=== PATIENT | male | born 2000 | race Caucasian/White ===

== ENCOUNTER 2018-01-12 05:48 | Emergency (ER) | payer OTHER ==
[~2018-01-12] VITALS: Ht 188 cm; Wt 90.7 kg
[2018-01-12 05:55] VITALS: BP_SYST 144
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
--- NOTE | 2018-01-12 05:55 | NUR ---
Placed in room 08 . To gown for exam. Side rails up. Report given to TONNY Roque.
--- NOTE | 2018-01-12 06:00 | NUR ---
ER at bedside examining patient.
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
[2018-01-12] MEDS ORDERED: BACITRACIN 1 GM OINT TP ONE (06:15)
[2018-01-12] MEDS ORDERED: LIDOCAINE/EPI 1% 1:100000 20 ML VIAL IJ ONE (06:15)
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
[2018-01-12 06:47] VITALS: BP_SYST 144
--- NOTE | 2018-01-12 06:47 | NUR ---
Patient given written and verbal discharge instructions and verbalizes understanding. ER MD discussed with patient the results and treatment provided. Patient in stable condition. ID arm band removed. Patient educated on pain management and to follow up with PMD. Pain Scale 0/10. Opportunity for questions provided and answered. Medication side effect fact sheet provided.
== END 2018-01-12 06:47 | disposition home or self-care (01) ==
LOC: SED 05:48
DX: S01.111A Laceration without foreign body of right eyelid and periocular area, initial encounter (principal); Y04.2XXA Assault by strike against or bumped into by another person, initial encounter; Y93.89 Activity, other specified; Y92.89 Other specified places as the place of occurrence of the external cause; Y99.8 Other external cause status
CPT/HCPCS: 99283